=== PATIENT | male | born 1965 | race Caucasian/White ===

== ENCOUNTER 2020-08-13 01:09 | Emergency (ER) | payer BC ==
[2020-08-13] MEDS ORDERED: Lactated Ringers 1,000 ML IV ONE (01:32)
[2020-08-13] MEDS ORDERED: Ondansetron 4 MG/2 ML SDV IV ONE (01:32)
[2020-08-13] MEDS ORDERED: Sodium Chloride 0.9% 10 ML Syringe FLUSH PRN (01:32)
[2020-08-13] MEDS ORDERED: HYDROmorphone 1 MG/ML Syringe IVPUSH ONE (01:32)
[2020-08-13 02:17] LABS: ANION GAP 12.4 mmol/L (5-15)
[2020-08-13] MEDS ORDERED: Iopamidol 612 MG/ML 100 ML Bottle IVPUSH ONE (03:05)
--- NOTE | 2020-08-13 03:34 | EDM.PDOC ---
ED HPI GENERAL MEDICAL PROBLEM - General Chief Complaint: Abdominal Pain Stated Complaint: RUQ Pain Time Seen by Provider: 08/13/20 01:24 Source of Information: Reports: Patient History Limitations: Reports: No Limitations - History of Present Illness INITIAL COMMENTS - FREE TEXT/NARRATIVE: Patient comes emergency department today from home with complaints of right upper quadrant abdominal pain. This patient about 3 to 4 hours ago developed some sharp shooting stabbing colicky type pain in the right upper quadrant abdomen. He has no chest pain no shortness of breath or difficulty breathing. No cough or congestion. No fever no chills. Some nausea without vomiting. No hematuria dysuria or urinary frequency. No diarrhea or loose stools. No black or bloody stools. He has had normal bowel movements last couple of days. He has had no surgeries on his abdomen in the past. No COVID exposure no COVID symptoms. 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 RUQ Pain Score (Numeric/FACES): 8 - Related Data Allergies Allergy/AdvReac Type Severity Reaction Status Date / Time No Known Allergies Allergy Verified 08/13/20 01:25 Home Meds: Home Meds Acetaminophen/HYDROcodone [[place] 325-5 MG] 1 tab PO Q6H PRN #12 tablet 08/13/20 [Rx] Past Medical History Cardiovascular History: Reports: High Cholesterol Dermatologic History: Reports: Seborrheic Dermatitis Social & Family History - Family History Oncologic: Reports: Prostate - Tobacco Use Tobacco Use Status *Q: Never Tobacco User - Recreational Drug Use Recreational Drug Use: No ED ROS GENERAL - Review of Systems Review Of Systems: Comprehensive ROS is negative, except as noted in HPI. ED EXAM, GI/ABD - Physical Exam Exam: See Below Exam Limited By: No Limitations General Appearance: Alert, WD/WN, Obese Eyes: Bilateral: EOMI Ears: Normal External Exam Nose: Normal Inspection Throat/Mouth: Normal Inspection, Normal Lips Head: Atraumatic Neck: Normal Inspection, Supple, Non-Tender Respiratory/Chest: No Respiratory Distress, Lungs Clear, No Accessory Muscle Use, Chest Non-Tender Cardiovascular: Normal Peripheral Pulses, Regular Rate, Rhythm GI/Abdominal Exam: Normal Bowel Sounds, Soft, Distended, Tender (RUQ with a possible possible murphys sign hard to tell. The rest of the abd is soft non- tender and not distended. ). No: Rigid, Rebound (Male) Exam: Deferred Rectal (Males) Exam: Deferred Back Exam: Normal Inspection, Full Range of Motion Extremities: Normal Inspection, Normal Range of Motion, Normal Capillary Refill Neurological: Alert, Oriented, Normal Cognition, No Motor/Sensory Deficits Psychiatric: Normal Affect, Normal Mood Skin Exam: Warm, Dry, Intact, Normal Color Lymphatic: No Adenopathy Course - Vital Signs Last Recorded V/S: Last Vital Signs Temp 97.2 F 08/13/20 01:27 Pulse 71 08/13/20 01:27 Resp 16 08/13/20 01:27 BP 172/96 H 08/13/20 01:27 Pulse Ox 96 08/13/20 01:27 - Orders/Labs/Meds Orders: Active Orders 24 hr Category Date Time Status Abdomen Pelvis w Cont [CT] Stat Exams 08/13/20 01:31 Taken Sodium Chloride 0.9% [Saline Flush] Med 08/13/20 01:32 Active 10 ml FLUSH ASDIRECTED PRN Peripheral IV Insertion Adult [OM.PC] Stat Oth 08/13/20 01:30 Ordered Medication Orders Sodium Chloride (Saline Flush) 10 ml FLUSH ASDIRECTED PRN PRN Reason: Keep Vein Open Labs: Laboratory Tests 08/13/20 08/13/20 08/13/20 Range/Units 01:45 01:45 01:45 WBC 12.1 H (4.0-10.0) x10^3/uL RBC 5.12 (4.5-6.0) x10^6/uL Hgb 15.3 (14.0-18.0) g/dL Hct 44.8 (40.0-52.0) % MCV 87.5 (78.0-93.0) fL MCH 29.9 (26.0-32.0) pg MCHC 34.2 (32.0-36.0) g/dL RDW Coeff of Yolanda 13.1 (10.0-15.0) % Plt Count 238 (130-400) x10^3/uL Neut % (Auto) 90.4 H (50.0-80.0) % Lymph % (Auto) 6.2 L (25.0-50.0) % [place] % (Auto) 3.1 (2.0-11.0) % Eos % (Auto) 0.1 (0.0-4.0) % Baso % (Auto) 0.2 (0.2-1.2) % Sodium 141 (136-145) mmol/L Potassium 4.4 (3.5-5.1) mmol/L Chloride 105 (98-107) mmol/L Carbon Dioxide 28 (21-32) mmol/L Anion Gap 12.4 (5-15) mmol/L BUN 18 (7-18) mg/dL Creatinine 1.5 H (0.70-1.30) mg/dL Est Cr Clr Drug Dosing 56.95 mL/min Estimated GFR (MDRD) 49 Glucose 160 H (74-106) mg/dL Lactic Acid 2.0 (0.4-2.0) mmol/L Calcium 8.9 (8.5-10.1) mg/dL Corrected Calcium 9.14 (8.5-10.1) mg/dL Total Bilirubin 0.8 (0.2-1.0) mg/dL AST 32 (15-37) U/L ALT 36 (16-63) U/L Alkaline Phosphatase 83 (46-116) U/L C-Reactive Protein 0.3 (<=0.9) mg/dL Total Protein 7.8 (6.4-8.2) g/dL Albumin 3.7 (3.4-5.0) g/dL Globulin 4.1 Albumin/Globulin Ratio 0.90 Lipase 114 (73-393) U/L Urine Color (YELLOW) Urine Appearance (CLEAR) Urine pH (5.0-8.0) Ur Specific [place] Urine Protein (NEGATIVE) mg/dL Urine Glucose (UA) (NEGATIVE) mg/dL Urine Ketones (NEGATIVE) mg/dL Urine Occult Blood (NEGATIVE) Urine Nitrite (NEGATIVE) Urine Bilirubin (NEGATIVE) Urine Urobilinogen (0.2) EU/dL Ur Leukocyte Esterase (NEGATIVE) U Hyaline Cast (Auto) Urine RBC (NOT SEEN) /HPF Urine WBC (NOT SEEN) /HPF Ur Squamous Epith Cells (NEGATIVE) /HPF Amorphous Sediment Urine Bacteria (NEGATIVE) /HPF Urine Mucus (NEGATIVE) /LPF 08/13/20 Range/Units 02:20 WBC (4.0-10.0) x10^3/uL RBC (4.5-6.0) x10^6/uL Hgb (14.0-18.0) g/dL Hct (40.0-52.0) % MCV (78.0-93.0) fL MCH (26.0-32.0) pg MCHC (32.0-36.0) g/dL RDW Coeff of Yolanda (10.0-15.0) % Plt Count (130-400) x10^3/uL Neut % (Auto) (50.0-80.0) % Lymph % (Auto) (25.0-50.0) % Bond % (Auto) (2.0-11.0) % Eos % (Auto) (0.0-4.0) % Baso % (Auto) (0.2-1.2) % Sodium (136-145) mmol/L Potassium (3.5-5.1) mmol/L Chloride (98-107) mmol/L Carbon Dioxide (21-32) mmol/L Anion Gap (5-15) mmol/L BUN (7-18) mg/dL Creatinine (0.70-1.30) mg/dL Est Cr Clr Drug Dosing mL/min Estimated GFR (MDRD) Glucose (74-106) mg/dL Lactic Acid (0.4-2.0) mmol/L Calcium (8.5-10.1) mg/dL Corrected Calcium (8.5-10.1) mg/dL Total Bilirubin (0.2-1.0) mg/dL AST (15-37) U/L ALT (16-63) U/L Alkaline Phosphatase (46-116) U/L C-Reactive Protein (<=0.9) mg/dL Total Protein (6.4-8.2) g/dL Albumin (3.4-5.0) g/dL Globulin Albumin/Globulin Ratio Lipase (73-393) U/L Urine Color Yellow (YELLOW) Urine Appearance Slightly cloudy H (CLEAR) Urine pH 5.5 (5.0-8.0) Ur Specific [place] >=1.030 Urine Protein Trace H (NEGATIVE) mg/dL Urine Glucose (UA) Negative (NEGATIVE) mg/dL Urine Ketones Negative (NEGATIVE) mg/dL Urine Occult Blood Trace-intact H (NEGATIVE) Urine Nitrite Negative (NEGATIVE) Urine Bilirubin Negative (NEGATIVE) Urine Urobilinogen 0.2 (0.2) EU/dL Ur Leukocyte Esterase Negative (NEGATIVE) U Hyaline Cast (Auto) Rare Urine RBC 0-5 (NOT SEEN) /HPF Urine WBC 0-5 (NOT SEEN) /HPF Ur Squamous Epith Cells Many H (NEGATIVE) /HPF Amorphous Sediment Few Urine Bacteria Not seen (NEGATIVE) /HPF Urine Mucus Many H (NEGATIVE) /LPF Meds: Medications Generic Name Dose Route Start Last Admin Trade Name Freq PRN Reason Stop Dose Admin Sodium Chloride 10 ml 08/13/20 01:32 Saline Flush FLUSH ASDIRECTED PRN Keep Vein Open Discontinued Medications Generic Name Dose Route Start Last Admin Trade Name Freq PRN Reason Stop Dose Admin Hydromorphone HCl 1 mg 08/13/20 01:32 08/13/20 01:50 Dilaudid IVPUSH 08/13/20 01:33 1 mg ONETIME ONE Administration Lactated Ringer's 1,000 mls @ 999 mls/hr 08/13/20 01:32 08/13/20 01:45 Ringers, Lactated IV 08/13/20 02:32 999 mls/hr ONETIME ONE Administration Iopamidol 100 ml 08/13/20 03:05 [id number] (61%) IVPUSH 08/13/20 03:06 ONETIME ONE Ondansetron HCl 4 mg 08/13/20 01:32 08/13/20 01:50 Zofran IV 08/13/20 01:33 4 mg ONETIME ONE Administration - Radiology Interpretation Free Text/Narrative:: CT scan per radiology abdomen pelvis with contrast shows cholelithiasis no pancreatitis no appendicitis or other acute inflammatory process. No obstructive uropathy. Large left renal cyst. No bowel obstruction. Nonspecific predominant fluid distention of the distal esophagus stomach and duodenum. - Re-Assessments/Exams Free Text/Narrative Re-Assessment/Exam: 08/13/20 Initially an IV was established labs are drawn. Urine pending. Dilaudid 1 mg IV push with almost complete resolution of his abdominal pain. Zofran 4 mg IV push. 08/13/20 03:44 Laboratory evaluation with a mild elevation his white blood cell count of 12.1. Hemoglobin of 15.3 with a platelet count of 238. CMP with mild elevation of the creatinine 1.5 with a BUN of 18 sodium potassium normal. Glucose 160. Lactic acid 2.0. T bili 0.8, AST 32 ALT 36 alkaline phosphatase 83. C-reactive protein 0.3. Lipase 114. Urinalysis with trace protein trace of occult blood intact U RBCs 05, U WBC 05, 08/13/20 03:46 CT scan with cholelithiasis. 08/13/20 04:14 Patient continued to be pain-free while he was in the emergency department. Reexamination of the abdomen shows a soft nontender nondistended abdomen. I discussed the CT scan concerning for cholelithiasis and most likely his presentation tonight due to biliary colic. Discussed gallbladder disease and the natural course of this as well and follow-up. We will discharge him home at this time with pain meds and discharge instructions on gallbladder diet. We will set him up for an outpatient ultrasound today to be completed here. We will follow up with him on the results following his gallbladder ultrasound today. Discharge directions as below are explained to the patient he was comfortable with this plan his questions were answered. Departure - Departure Time of Disposition: 03:55 Disposition: Home, Self-Care 01 Clinical Impression: Biliary colic Cholelithiasis Qualifiers: Cholelithiasis location: gallbladder Cholecystitis presence: without cholecystitis Biliary obstruction: without biliary obstruction Qualified Code(s): K80.20 - Calculus of gallbladder without cholecystitis without obstruction - Discharge Information Instructions: Cholelithiasis, [id number], Pain Medicine Instructions, [id number], Biliary Colic, Adult Referrals: Shabana George, SAMPLE CHECKER [Primary Care Provider] - Forms: ED Department Discharge Additional Instructions: Home rest. Increase oral fluids. Tylenol and or Ibuprofen as needed for pain. Nothing to eat or drink. We will call you this morning after the office gets here for the time of a gallbladder US to be completed today. After your Ultrasound, follow a gallbladder diet. Low and or No fat diet. If pain controlled with above. [place] 1 tablet every 6 hrs with food as needed for pain. Caution sedation. Do not take with Tylenol as this medication has Tylenol in it. Starter pack from the ED sent home and RX sent to [facility]. Return to the ED if new or worsening symptoms. We will contact you following your US today with the results further guidance at that time. Otherwise follow up with your PCP in the next 4-6 days if not improving sooner if worse Sepsis Event Note (ED) - Evaluation Sepsis Screening Result: No Definite Risk - Focused Exam Vital Signs: Vital Signs Temp Pulse Resp BP Pulse Ox 08/13/20 01:27 97.2 F 71 16 172/96 H 96 - My Orders Last 24 Hours: My Active Orders 08/13/20 01:30 Peripheral IV Insertion Adult [OM.PC] Stat 08/13/20 01:31 Abdomen Pelvis w Cont [CT] Stat 08/13/20 01:32 Sodium Chloride 0.9% [Saline Flush] 10 ml FLUSH ASDIRECTED PRN - Assessment/Plan Last 24 Hours: My Active Orders 08/13/20 01:30 Peripheral IV Insertion Adult [OM.PC] Stat 08/13/20 01:31 Abdomen Pelvis w Cont [CT] Stat 08/13/20 01:32 Sodium Chloride 0.9% [Saline Flush] 10 ml FLUSH ASDIRECTED PRN
[2020-08-13] MEDS ORDERED: Take Home: Acetaminophen/HYDROcodone 325-5 MG, 5 Tab Pack PO ONE (04:00)
--- NOTE | 2020-08-13 08:18 | CT ---
[id number] CT/CT Abdomen Pelvis W IV EXAM: CT Abdomen Pelvis W IV CLINICAL DATA: RUQ PAIN. COMPARISON STUDY: None. FINDINGS: Dependent atelectasis at the lung bases bilaterally. Cholelithiasis without evidence of acute cholecystitis. The liver, spleen, pancreas, adrenal glands, and right kidney are unremarkable. 7.1 cm simple appearing left lower pole renal cyst. No hydronephrosis or hydroureter. The appendix is visualized and appears normal. No bowel obstruction or inflammation. No lymphadenopathy, free fluid, or pneumoperitoneum. Scattered changes of spondylosis the spine. No fracture or osseous lesion. IMPRESSION: Cholelithiasis without evidence of acute cholecystitis. Ji Gordon DO 08/13/20 0816 Thank you for allowing us to participate in the care of your patient.
== END 2020-08-13 04:09 | disposition home or self-care (01) ==
LOC: VM.ED 01:09
DX: K80.20 Calculus of gallbladder without cholecystitis without obstruction (principal); K80.50 Calculus of bile duct without cholangitis or cholecystitis without obstruction
CPT/HCPCS: 74177; 80053; 81001; 83605; 83690; 85025; 86140; 96374; 96375; 99284-25; 99285; A9270-GY; J1170; J2405; J7120

== ENCOUNTER 2021-05-25 02:23 | Emergency (ER) | payer BC ==
[2021-05-25] MEDS ORDERED: Sodium Chloride 0.9% 1,000 ML IV SCH (02:30)
[2021-05-25] MEDS: Ketorolac 15 MG/ML SDV IVPUSH SCH (02:50)
[2021-05-25 03:12] LABS: CHLORIDE,CL 105 mmol/L (98-107); SODIUM,NA 144 mmol/L (136-145)
[2021-05-25 03:13] LABS: ANION GAP 16.3 mmol/L (5-15)
--- NOTE | 2021-05-25 03:58 | EDM.PDOC ---
ED HPI GENERAL MEDICAL PROBLEM - General Chief Complaint: Abdominal Pain Stated Complaint: gallbladder Time Seen by Provider: 05/25/21 02:25 Source of Information: Reports: Patient History Limitations: Reports: No Limitations - History of Present Illness INITIAL COMMENTS - FREE TEXT/NARRATIVE: Patient comes into the emergency department with complaints of abdominal pain. Patient states that abdominal pain started earlier this evening. Sharp shooting in the upper right quadrant. Patient states he does have known gallbladder issues in the past. He states that he does become nauseated with this as well. Patient denies any fever, chest pain, shortness of breath, dizziness, lightheadedness, peripheral edema, or genitourinary concerns. Onset: Sudden Duration: Constant Location: Reports: Abdomen Quality: Reports: Ache, Stabbing Severity: Moderate Improves with: Reports: Rest Worsens with: Reports: Movement Context: Reports: Other Associated Symptoms: Reports: Nausea/Vomiting Right Middle Abdomen Pain Score (Numeric/FACES): 8 - Related Data Allergies Allergy/AdvReac Type Severity Reaction Status Date / Time No Known Allergies Allergy Verified 08/13/20 01:25 Home Meds: Home Meds Acetaminophen/HYDROcodone [[place] 325-5 MG] 1 tab PO Q6H PRN #12 tablet 08/13/20 [Rx] Past Medical History Cardiovascular History: Reports: High Cholesterol Dermatologic History: Reports: Seborrheic Dermatitis Social & Family History - Family History Oncologic: Reports: Prostate - Tobacco Use Tobacco Use Status *Q: Never Tobacco User - Recreational Drug Use Recreational Drug Use: No ED ROS GENERAL - Review of Systems Review Of Systems: Comprehensive ROS is negative, except as noted in HPI. Constitutional: Reports: No Symptoms HEENT: Reports: No Symptoms Respiratory: Reports: No Symptoms Cardiovascular: Reports: No Symptoms Endocrine: Reports: No Symptoms : Reports: No Symptoms Musculoskeletal: Reports: No Symptoms Skin: Reports: No Symptoms Neurological: Reports: No Symptoms Psychiatric: Reports: No Symptoms Hematologic/Lymphatic: Reports: No Symptoms Immunologic: Reports: No Symptoms ED EXAM, GENERAL - Physical Exam Exam: See Below Exam Limited By: No Limitations General Appearance: Alert, WD/WN, No Apparent Distress Head: Atraumatic, Normocephalic Respiratory/Chest: No Respiratory Distress, Lungs Clear, Normal Breath Sounds, No Accessory Muscle Use, Chest Non-Tender Cardiovascular: Normal Peripheral Pulses, Regular Rate, Rhythm, No Edema, No Murmur GI/Abdominal: Normal Bowel Sounds, Soft, Non-Tender, Pelvis Stable Rectal (Males) Exam: Prostate Nodule Back Exam: Normal Inspection Extremities: Normal Inspection, Normal Range of Motion, Non-Tender, Normal Capillary Refill Neurological: Oriented, Normal Gait Psychiatric: Normal Affect, Normal Mood Skin Exam: Warm, Dry, Intact, Normal Color Course - Vital Signs Last Recorded V/S: Last Vital Signs Temp 35.3 C L 05/25/21 02:53 Pulse 70 05/25/21 02:53 Resp 17 05/25/21 02:53 BP 169/106 H 05/25/21 02:53 Pulse Ox 98 05/25/21 02:53 - Orders/Labs/Meds Orders: Active Orders 24 hr Category Date Time Status CTA Abd Pelv w wo Cont [CT] Stat Exams 05/25/21 02:26 Ordered CORONAVIRUS COVID-19 RAPID [MOLEC] Stat Lab 05/25/21 03:40 Received Ketorolac [Toradol] Med 05/25/21 02:30 Active 15 mg IVPUSH Q6H Sodium Chloride 0.9% [Normal Saline] 1,000 ml Med 05/25/21 02:30 Active IV ASDIRECTED Medication Orders Sodium Chloride (Normal Saline) 1,000 mls @ 500 mls/hr IV ASDIRECTED NOVA Ketorolac Tromethamine (Ketorolac 15 Mg/Ml Sdv) 15 mg IVPUSH Q6H NOVA Stop: 05/30/21 02:27 Last Admin: 05/25/21 02:50 Dose: 15 mg Documented by: RADHA Labs: Laboratory Tests 05/25/21 05/25/21 05/25/21 Range/Units 02:48 02:48 02:48 WBC 9.0 (4.0-10.0) x10^3/uL RBC 5.35 (4.5-6.0) x10^6/uL Hgb 16.3 (14.0-18.0) g/dL Hct 47.5 (40.0-52.0) % MCV 88.8 (78.0-93.0) fL MCH 30.5 (26.0-32.0) pg MCHC 34.3 (32.0-36.0) g/dL RDW Coeff of Yolanda 12.4 (10.0-15.0) % Plt Count 226 (130-400) x10^3/uL Immature Gran % (Auto) 0.10 (0.00-0.43) % Neut % (Auto) 77.8 (50.0-80.0) % Lymph % (Auto) 15.8 L (25.0-50.0) % [place] % (Auto) 5.8 (2.0-11.0) % Eos % (Auto) 0.3 (0.0-4.0) % Baso % (Auto) 0.2 (0.2-1.2) % Neut # (Auto) 7.0 (1.8-7.7) x10^3/uL Lymph # (Auto) 1.4 (1.0-4.8) x10^3/uL [place] # (Auto) 0.5 (0.0-0.8) x10^3/uL Eos # (Auto) 0.0 (0.0-0.5) x10^3/uL Baso # (Auto) 0.0 (0.0-0.2) x10^3/uL Immature Gran # (Auto) 0.01 (0.00-0.07) x10^3/uL ESR 12 (0-15) mm/hr Sodium 144 (136-145) mmol/L Potassium 4.3 (3.5-5.1) mmol/L Chloride 105 (98-107) mmol/L Carbon Dioxide 27 (21-32) mmol/L Anion Gap 16.3 H (5-15) mmol/L BUN 17 (7-18) mg/dL Creatinine 1.5 H (0.70-1.30) mg/dL Est Cr Clr Drug Dosing 56.30 mL/min Estimated GFR (MDRD) 49 Glucose 180 H (70-99) mg/dL Calcium 9.1 (8.5-10.1) mg/dL Corrected Calcium 9.3 (8.5-10.1) mg/dL Total Bilirubin 0.5 (0.2-1.0) mg/dL AST 21 (15-37) U/L ALT 38 (16-63) U/L Alkaline Phosphatase 93 (46-116) U/L C-Reactive Protein < 0.2 (<=0.9) mg/dL Total Protein 7.7 (6.4-8.2) g/dL Albumin 3.7 (3.4-5.0) g/dL Globulin 4.0 Albumin/Globulin Ratio 0.93 Meds: Medications Generic Name Dose Route Start Last Admin Trade Name Moose PRN Reason Stop Dose Admin Sodium Chloride 1,000 mls @ 500 mls/hr 05/25/21 02:30 Normal Saline IV ASDIRECTED [facility] Ketorolac Tromethamine 15 mg 05/25/21 02:30 05/25/21 02:50 Ketorolac 15 Mg/Ml Sdv IVPUSH 05/30/21 02:27 15 mg Q6H NOVA Administration Departure - Departure Time of Disposition: 04:00 Disposition: Home, Self-Care 01 Condition: Good Clinical Impression: Gall bladder stones - Discharge Information *PRESCRIPTION DRUG MONITORING PROGRAM REVIEWED*: Not Applicable *COPY OF PRESCRIPTION DRUG MONITORING REPORT IN PATIENT KIKA: Not Applicable Instructions: Cholelithiasis Additional Instructions: 1. rest 2. increase your water intake 3. Continue all at home medications 4. Activity and diet as tolerated 5. Can take over the counter Tylenol for any pain or discomfort 6. Follow up with PCP if symptoms continue, return, or progress 7. Call with any questions or concerns Sepsis Event Note (ED) - Evaluation Sepsis Screening Result: No Definite Risk - Focused Exam Vital Signs: Vital Signs Temp Pulse Resp BP Pulse Ox 05/25/21 02:53 35.3 C L 70 17 169/106 H 98 - My Orders Last 24 Hours: My Active Orders 05/25/21 02:26 CTA Abd Pelv w wo Cont [CT] Stat 05/25/21 02:30 Ketorolac [Toradol] 15 mg IVPUSH Q6H Sodium Chloride 0.9% [Normal Saline] 1,000 ml IV ASDIRECTED 05/25/21 03:40 CORONAVIRUS COVID-19 RAPID [MOLEC] Stat - Assessment/Plan Last 24 Hours: My Active Orders 05/25/21 02:26 CTA Abd Pelv w wo Cont [CT] Stat 05/25/21 02:30 Ketorolac [Toradol] 15 mg IVPUSH Q6H Sodium Chloride 0.9% [Normal Saline] 1,000 ml IV ASDIRECTED 05/25/21 03:40 CORONAVIRUS COVID-19 RAPID [MOLEC] Stat Assessment:: 1. abdominal pain 2. Gall stones Plan: 1. Labs completed in the ER. Results reviewed with the patient 2. IV initiated in the emergency department 3. CT abdomen completed 4. Pain medication given for severe pain and discomfort- 5. Covid-19 completed if needing surgery or admit 6. Patient and nursing staff was updated regarding the plan of care 7. Education provided the patient regarding activity, diet, rest, [id number] medication modalities, and follow-up care was provided 8. Patient and family are agreeable to the above plan of care 9. All questions and concerns were addressed with the patient and family prior to discharge
--- NOTE | 2021-05-25 08:51 | CT ---
[id number] CT/CT Abdomen Pelvis WO IV EXAM: CT Abdomen Pelvis WO IV INDICATION: GALLBLADDER PAIN NAUSEA VOMITING COMPARISON: None. DISCUSSION: The gallbladder contains multiple small calcified gallstones. No CT evidence of acute cholecystitis. Small fat-containing umbilical hernia. 73 mm cyst lower pole left kidney. The liver, spleen, pancreas, adrenal glands, right kidney, small bowel, large bowel, and the appendix are normal in appearance. No adenopathy, free air free fluid. The osseous structures are unremarkable. IMPRESSION: 1. Cholelithiasis without CT evidence of acute cholecystitis. Pancho Garcia MD 05/25/21 0850 Thank you for allowing us to participate in the care of your patient.
== END 2021-05-25 04:00 | disposition home or self-care (01) ==
LOC: VM.ED 02:23
DX: K80.20 Calculus of gallbladder without cholecystitis without obstruction (principal); Z20.822 Contact with and (suspected) exposure to COVID-19
CPT/HCPCS: 36415; 74178; 80053; 85025; 85652; 86140; 93010; 96374; 99284; 99284-25; J1885; U0002